=== PATIENT | male | born 1965 | race Caucasian/White ===

== ENCOUNTER → 2019-06-27 | Outpatient (CLI) | payer MEDICAID, SELFPAY ==
--- NOTE | 2019-06-27 13:06 | CT_ITS ---
STUDY: CT CHEST WITHOUT CONTRAST REASON FOR EXAM: Male, 53 years old. Cough elevated direct RADIATION DOSAGE (If Supplied By Facility): CTDIvol = ( 24.18 ) mGy, DLP = ( 811.40 ) mGycm TECHNIQUE: Transaxial imaging was performed without the administration of intravenous contrast material. Multiplanar coronal and sagittal images were reformatted. Individualized dose optimization techniques were used for this CT. COMPARISON: None. FINDINGS: There is symmetric elevation or eventration of the bilateral hemidiaphragms. There is persistent midlung zone linear density along the fissures suggestive of atelectasis. There is no demonstrated pleural abnormality. Normal heart and pericardium. There is borderline cardiac enlargement. There is a trace pericardial effusion. There is an 8.2 mm lymph node demonstrated in the AP window. There is a benign-appearing subcentimeter lymph node measuring 4.6 mm the pretracheal space. Normal hilar regions. Normal unenhanced pulmonary arteries. Normal aorta arch and descending thoracic aorta. There is degenerative change T11-T12. There is chronic appearing loss of height at the level of T12 There is a minimal hiatal hernia. There is a nonspecific subcentimeter lymph node in the upper abdomen. CT/Chest without Contrast IMPRESSION: Mid lung zone atelectasis and/or scarring no evidence of focal infiltrate. Fairly symmetric appearing eventration of the bilateral hemidiaphragms. Borderline cardiac enlargement. Electronically Signed: Janet Gomes MD at 17:18 EDT Tel , Service support ,
== END | disposition home or self-care (01) ==
LOC: CT 12:57
PROVIDERS: Family Provider Family Medicine; PCP Family Medicine; Referring Provider Internal Medicine Pulmonary Disease; Visit Provider Internal Medicine Pulmonary Disease
DX: J98.6 Disorders of diaphragm (principal); R05 Cough
CPT/HCPCS: 71250

== ENCOUNTER → 2019-08-20 09:43 | Outpatient (CLI) | payer MEDICAID, SELFPAY ==
--- NOTE | 2019-08-20 09:46 | RAD_ITS ---
STUDY: SNIFF TEST. REASON FOR EXAM: Male, 53 years old. Elevated right hemidiaphragm. TECHNIQUE: Direct fluoroscopic imaging of the patient's inspiration and expiration. COMPARISON: None. FINDINGS: There is normal excursion of the right and left hemidiaphragms. RAD/Chest Sniff Test Fluoro Only IMPRESSION: No evidence of a diaphragmatic paralysis. Electronically Signed: Rod Koch, at 15:15 EDT , Service support ,
== END ==
PROVIDERS: Family Provider Family Medicine; PCP Family Medicine; Referring Provider Internal Medicine Pulmonary Disease; Visit Provider Internal Medicine Pulmonary Disease
DX: R06.00 Dyspnea, unspecified (principal); J98.6 Disorders of diaphragm
CPT/HCPCS: 76000